=== PATIENT | female | born 1980 | race Caucasian/White ===

== ENCOUNTER → 2017-05-05 | Outpatient (CLI) | payer OTHER ==
--- NOTE | 2017-05-05 16:38 | RAD ---
EXAM DESCRIPTION: UGI CLINICAL HISTORY: REFLUX, GERD COMPARISON: None TECHNIQUE: Preliminary [employer] radiograph. The patient swallowed barium pill with water. The patient swallowed gas-producing granules, water, and heavy density barium under fluoroscopic visualization. The images were obtained with the patient standing and horizontal. Patient drank medium density barium through a straw in the semi-prone position. 10 fluoroscopic cine loop images. 5 static fluoroscopic images. Total fluoroscopy time was 2.2 minutes. DAP: 129.67 mGy. FINDINGS: The swallowing mechanism in the hypopharynx and laryngeal regions is unremarkable. Normal primary peristaltic wave. No mucosal abnormalities in the esophagus. Minimal gastroesophageal reflux was noted in the supine position and rolling from prone to supine position. No hiatal hernia was demonstrated spontaneously or with eliciting maneuvers. No mass effect on the distal esophagus. The stomach shows no mass effect or mucosal abnormalities. No mucosal lesions in the duodenal bulb or the remainder of the duodenum. No mass effect. IMPRESSION: 1. Mild gastroesophageal reflux. No hiatal hernia. No mucosal lesions or mass effect on the esophagus. Electronically signed by: Alon Hung MD 05/05/2017 4:37 PM [facility]
== END | disposition home or self-care (01) ==
LOC: RAD 09:30
DX: K21.9 Gastro-esophageal reflux disease without esophagitis (principal); Z13.810 Encounter for screening for upper gastrointestinal disorder